=== PATIENT | female | born 2000 | race African-American/Black ===

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

== ENCOUNTER 2020-01-22 17:52 | Inpatient (IN) ==
[2020-01-22] MEDS ORDERED: TYLENOL PO ONE (18:36)
--- NOTE | 2020-01-22 18:39 | PROVIDER DOCUMENTATION ---
This chart was entered by Kendy Lerma Scribe, acting as scribe for Antonio Whitley MD. HPI-General Adult - General Stated Complaint: SOB Time Seen by Provider: 01/22/20 17:57 Source: patient Allergies/Adverse Reactions: Patient Allergies Allergy/AdvReac Type Severity Reaction Status Date / Time cephalexin [From Keflex] Allergy SWELLING Verified 01/22/20 20:26 Home Medications: Home Medication List Medication Instructions Recorded Confirmed Last Taken Type Hydroxychloroquine [Plaquenil] 400 mg PO DAILY 07/29/19 01/22/20 12/21/19 23:30 History Mometasone/Formoterol [Dulera 100 2 puff INH BID 08/02/19 01/22/20 12/20/19 History Mcg/5 Mcg Inhaler] Prednisone 10 mg PO DAILY 08/02/19 01/22/20 12/21/19 23:30 History Multivitamin [Multivitamins] 1 ea PO DAILY 09/20/19 01/22/20 12/22/19 12:00 History Pantoprazole [Protonix] 40 mg PO DAILY #30 tab 01/11/20 01/22/20 Unknown Rx Tramadol [Ultram] 50 mg PO Q6H PRN PRN #12 tab 01/11/20 01/22/20 Unknown Rx - History of Present Illness -Gen Adult Nature of Presenting Problems: Patient is a 19 yof who presents to the ED with a cc of SOB onset yesterday with associated left lower chest tenderness. Patient reports recently being dx with pneumonia. Patient is A&0x3 with no apparent distress. Location of Pain/Injury: reports: chest (Left lower) Pain Radiation: reports: no radiation Quality of Pain: reports: dull Severity: reports: mild Onset/Duration: reports: 24 hours ago Timing: reports: still present Context/Activities at Onset: reports: none Modifying Factors: improves with: nothing Associated Symptoms: reports: chest pain (Left lower chest), shortness of breath . denies: cough, fever/chills Similar Symptoms Previously?: Yes Recently seen or treated by another doctor?: Yes Review of Systems - Adult - REVIEW OF SYSTEMS - ADULT Constitutional: reports: no symptoms reported Eyes: reports: no symptoms reported Ears, Nose, Mouth & Throat: reports: no symptoms reported Cardiovascular: reports: see HPI, chest pain (Left lower chest tenderness) Respiratory: reports: see HPI, wheezing Gastrointestinal: reports: no symptoms reported Genitourinary: reports: no symptoms reported Musculoskeletal: reports: no symptoms reported Integumentary: reports: no symptoms reported Neurological: reports: no symptoms reported Psychiatric: reports: no symptoms reported Endocrine: reports: no symptoms reported Hematologic/Lymphatic: reports: no symptoms reported Allergic/Immunologic: reports: no symptoms reported All Other Systems: Reviewed and Negative Past History - Adult - PAST MEDICAL HISTORY-ADULT Review of Records: reports: Old Records Reviewed, Nursing Assessment Review, Medications Reviewed, Social history reviewed & non-contributory. Major Childhood Illnesses: reports: denies history Cardiovascular: reports: denies history Respiratory: reports: asthma Gastrointestinal: reports: denies history Obstetrical/Gynecological: reports: denies history Genitourinary: reports: denies history Musculoskeletal: reports: denies history Neurological: reports: denies history Endocrine/Immune: reports: denies history Other Conditions: reports: denies history - PRIOR SURGERIES/PROCEDURES Surgical/Procedure History: reports: none, hernia repair - IMMUNIZATION STATUS Childhood Immunizations: See Nurse Assessment Flu Vaccine: See Nurse Assessment - FAMILY HISTORY Family History: reviewed, not pertinent - SOCIAL HISTORY Smoking: non-smoker Substance Use: denies Living Situation: family Physical Exam-General - PHYSICAL EXAM-ADULT Initial Vital Signs Reviewed: Yes - CONSTITUTIONAL General Appearance: alert, no apparent distress - EYES Eyes: PERRL/EOMI, pink conjunctivae - HEAD, EARS, NOSE, MOUTH & THROAT HENMT: normocephalic/atraumatic, moist mucous membranes - NECK Neck: full range of motion, supple, normal inspection - RESPIRATORY Respiratory: chest non-tender, lungs clear, no respiratory distress, no accessory muscle use. negative: normal breath sounds (decreased breath sounds on the left) - CARDIOVASCULAR Cardiovascular: normal peripheral pulses, regular rate, rhythm - GASTROINTESTINAL (ABDOMEN) Abdominal Exam: normal bowel sounds, non tender, soft - MUSCULOSKELETAL Extremity: normal range of motion, non-tender, normal inspection - SKIN Integumentary: normal color, normal turgor, warm/dry - NEUROLOGIC Neurologic: grossly normal - PSYCHIATRIC Psych/Mental Status: normal mood/affect, normal thought content, normal thought process, oriented x 3 Progress - PLAN OF CARE/RESULTS Progress/Plan/Lab Results: Orders Category Date Time Status Saline Loc NOW Care 01/22/20 18:01 Active cxr [CHEST-PORTABLE] [RAD] Stat Exams 01/22/20 18:01 Ordered CBC WITH ELECTRONIC DIFF [HEME] Stat Lab 01/22/20 18:01 Uncollected COMPREHENSIVE METABOLIC PANEL [CHEM] Stat Lab 01/22/20 18:01 Uncollected D-DIMER [COAG] Stat Lab 01/22/20 18:01 Uncollected LACTATE, PLASMA [CHEM] Stat Lab 01/22/20 18:01 Uncollected PROTIME WITH INR [COAG] Stat Lab 01/22/20 18:01 Uncollected PTT [COAG] Stat Lab 01/22/20 18:01 Uncollected EKG [EKG] Stat Ther 01/22/20 18:01 Ordered Result Diagrams: 01/22/20 18:20 01/22/20 18:20 - CT/MRI 1 CT Study: Angiogram Impression: Abnormal, See EMR Report ( COMMENT: 3-D MIPS were performed. There is a large left pleural effusion with near complete atelectasis of the left lung. There is shift the mediastinum to the right. There are no apparent filling defects in the pulmonary arteries. The aorta is not distended and there is no evidence of dissection. Compared to 01/11/2020 the left pleural effusion is larger. There is a greater degree of compressive atelectasis. There are is bilateral axillary adenopathy which has not changed appreciably since the previous study. The regional skeleton is intact. There may be some pulmonary edema in the right lung. IMPRESSION: Massive left pleural effusion with complete atelectasis of the left lung. Bilateral axillary adenopathy. Electronically signed by Chuy Green 01/22/2020 9:48 PM 01/22/202147 Interpreting Physician: Chuy Green MD Dictated Date/Time: 01/22/202142 cc: Megan Arauz MD; Abraham Castañeda MD) Comparison with other Films: changes noted CT Results: Massive left pleural effusion with complete atelectasis of the left lung. - CONSULTS/PCP/HOSPITALIST Notification #1 *Consult/PCP/Hospitalist*: Dr. Machado, [employer] Time Discussed: 22:44 Reason/Comments: Agrees to consult, admit to hospitalist Consult Disposition: Admit #2 Consult: Dr. Hager, Hospitalist Time Discussed: 22:45 Reason/Comments: Accepts admission Consult Disposition: Admit - CHANGE OF SHIFT REPORT (ED Provider) 1 Report Given and Care Transferred to:: Dr Arauz Time of Transfer: 18:39 Items Pending: Labs, XRAY Results Departure - Departure Date of Disposition Decision: 01/22/20 Time of Disposition Decision: 22:49 Disposition: ADMITTED INPATIENT 09 Certified Medical Emergency: Emergent Condition: Stable Referrals and Follow-Ups: Abraham Castañeda MD [Primary Care Provider] - Attestation - Physician/ NOLVIA Attestation Patient care was provided by Advanced Practice Provider:: No The physician spent face to face time with patient:: Yes Advanced Practice Provider documentation review:: Supervising physician onsite and consulted in the evaluation and care of this patient. The physician did have a face to face encounter with the patient. This chart was documented by the indicated scribe, (Kendy Lerma Scribe) and accurately reflects the services I performed and decisions made by Jose R ritchie Donald C., MD, as attested by the provider's signature.
[2020-01-22 18:44] LABS: INR 0.86; PROTIME 11.8 Seconds (11.0-16.0)
[2020-01-22 18:45] LABS: PTT 23.5 Seconds (22.3-41.8)
[2020-01-22 18:56] LABS: BASO# 0.01 X1000 (0.0-0.2); BASO% 0.1 % (0.0-0.8); EOS# 0.03 X1000 (0.0-0.7); EOS% 0.4 % (0.0-10.0); HEMATOCRIT 36.9 % (37.0-47.0); HEMOGLOBIN 11.8 g/dL (12.0-16.0); LYMPH# 1.48 X1000 (1.2-3.4); MCH 25.5 PG (27-31); MCV 79.9 FL (81-99); MONO# 0.59 X1000 (0.11-0.59); MONO% 7.6 % (1.7-9.3); MPV 9.6 FL (7.4-10.4); NEUT% 72.9 % (42.2-75.2); PLT 564 X1000 (130-400); RBC 4.62 XMIL (4.2-5.4); WBC 7.81 X1000 (4.8-10.8)
[2020-01-22 19:02] LABS: AGAP 12; ALBUMIN 3.2 g/dL (3.5-5.0); ALKALINE PHOSPHATASE 64 U/L (32-104); BUN 7 mg/dL (8-22); CALCIUM 8.5 mg/dL (8.8-10.2); CHLORIDE 102 mmol/L (98-107); COSMO 271; CREATININE 0.6 mg/dL (0.5-0.9); ESTIMATED GFR > 60; GLUCOSE 87 mg/dL (70-104); GOT 16 U/L (10-30); GPT 11 U/L (10-36); POTASSIUM 3.5 mmol/L (3.5-5.1); SODIUM 137 mmol/L (136-145); TCO2 23 mmol/L (25-35); TOTAL BILIRUBIN 0.31 mg/dL (0.20-1.00); TOTAL PROTEIN 6.4 g/dL (6.3-8.3)
[2020-01-22] MEDS ORDERED: DUONEB (A & A) INH ONE (19:25)
[2020-01-22] MEDS ORDERED: VANCOMYCIN 1 GM/NS 1 GM/250 ML IVPB IV ONE (19:33)
[2020-01-22] MEDS ORDERED: ZOFRAN IV ONE (20:16)
--- NOTE | 2020-01-22 21:50 | Diag Imaging Result Doc PS360 ---
EXAM: CT ANGIOGRAM PULMONARY ARTERIES 01/22/2020 HISTORY: dyspnea TECHNIQUE: This exam was performed using automated exposure control, adjustment of mA or kV according to patient size, and/or use of iterative reconstruction technique. COMMENT: 3-D MIPS were performed. There is a large left pleural effusion with near complete atelectasis of the left lung. There is shift the mediastinum to the right. There are no apparent filling defects in the pulmonary arteries. The aorta is not distended and there is no evidence of dissection. Compared to 01/11/2020 the left pleural effusion is larger. There is a greater degree of compressive atelectasis. There are is bilateral axillary adenopathy which has not changed appreciably since the previous study. The regional skeleton is intact. There may be some pulmonary edema in the right lung. IMPRESSION: Massive left pleural effusion with complete atelectasis of the left lung. Bilateral axillary adenopathy. Electronically signed by Chuy Green 01/22/2020 9:48 PM
--- NOTE | 2020-01-23 00:17 | HISTORY AND PHYSICAL ---
PRIMARY CARE PHYSICIAN: Abraham Castañeda MD. CHIEF COMPLAINT: Shortness of breath and chest discomfort x2 days. HISTORY OF PRESENTING ILLNESS: This is a 19-year-old female with a history of SLE and obesity who had presented to the emergency department with 2 days history of having worsening shortness of breath and chest discomfort. The patient states that it seemed to be worsening and subsequently she had come to the emergency department. The patient apparently was treated for pneumonia about 2 weeks ago and discharged home. She states that she was doing well after she went home, but over the past several days her symptoms seem to have reoccurred. The patient was seen in the ED, she had imaging done which did show a large left pleural effusion. Due to these findings she will require admission for further management. At the time of my examination the patient denied any headache, nausea, vomiting, diarrhea, hemoptysis or melena, but complained of chest discomfort and shortness of breath. PAST MEDICAL HISTORY: Includes SLE, obesity. PAST SURGICAL HISTORY: Hernia repair. ALLERGIES: Cephalexin. CURRENT MEDICATIONS: Include Plaquenil 400 mg p.o. daily, Dulera 100 mcg/5 mcg inhaler 2 puffs inhalation b.i.d., pantoprazole 40 mg p.o. daily, prednisone 10 mg p.o. daily, tramadol 50 mg p.o. q.6 hours. SOCIAL HISTORY: She denies any history of smoking, alcohol or illicit drug use. FAMILY HISTORY: No history of coronary disease. REVIEW OF SYSTEMS: Fourteen point review of systems is as listed in the HPI, other systems negative. PHYSICAL EXAMINATION: GENERAL: A cooperative friendly female. She is resting more comfortably now. VITAL SIGNS: Temperature 101.3 degrees, pulse 144, respirations 40, blood pressure 116/56. HEENT: Atraumatic, normocephalic. Extraocular movements are intact. PERRLA. NECK: No masses. CHEST: Rales. CARDIOVASCULAR: Regular rate and rhythm. ABDOMEN: Soft, obese, positive bowel sounds. EXTREMITIES: Trace edema. NEUROLOGIC: She is awake, alert asnd oriented x3. : No bladder distention. SKIN: Warm. LABORATORIES AND STUDIES: WBC is 7.81, hemoglobin 11.8, hematocrit 36.9, platelets 564,000. Sodium 137, potassium 3.5, chloride 102, CO2 is 23, BUN is 7, creatinine 0.6, glucose is 87. Pulmonary arteriogram shows massive left pleural effusion. ASSESSMENT: This is a 19-year-old female with a history of SLE and obesity who had presented to the emergency department with 2 days history of worsening shortness of breath. She was evaluated in the ED and she had imaging done which did show a large left pleural effusion. Subsequently she will require admission for further management. 1. Large left pleural effusion. 2. Recent treatment for pneumonia. 3. SLE. 4. Obesity. PLAN: 1. We will admit the patient to ICU. 2. We will keep the patient NPO. 3. We will schedule the patient for a ultrasound-guided thoracentesis. 4. We will consult Pulmonology. 5. We will check blood cultures. Start the patient on IV antibiotics. 6. Restart home medications. 7. We will continue to follow, reassess and make further recommendation based on the patient's clinical course. cc: Umer Hager MD
[2020-01-23] MEDS: ZOFRAN IV PRN (01:02)
[2020-01-23] MEDS ORDERED: SODIUM CHLORIDE 0.9% INJ PRN (02:05)
[2020-01-23] MEDS ORDERED: PHENERGAN IV PRN (02:05)
[2020-01-23] MEDS: ZOSYN 3.375 GM in NS 50 ML IV SCH ×4 (02:29→19:29)
[2020-01-23] MEDS: DUONEB (A & A) INH SCH ×7 (03:35→23:40)
[2020-01-23] MEDS: PRILOSEC PO SCH (06:11)
[2020-01-23] MEDS: TYLENOL PO PRN ×2 (06:11→15:02)
--- NOTE | 2020-01-23 06:49 | EKG Report ---
Test Performed on : 01/23/2020 05:46:25 AM Test Reason : HR 135 Blood Pressure : / mmHG Vent. Rate : 135 BPM Atrial Rate : 135 BPM P-R Int : 136 ms QRS Dur : 068 ms QT Int : 270 ms P-R-T Axes : 051 037 -13 degrees QTc Int : 405 ms Sinus tachycardia. Septal infarct , age undetermined Nonspecific T wave abnormality Abnormal ECG When compared with ECG of 11-JAN-2020 08:54, (Unconfirmed) No significant change was found Confirmed by Robb Mcdonough MD ([id number]) on 01/24/2020 3:28:03 PM
[2020-01-23 07:35] LABS: BASO# 0.03 X1000 (0.0-0.2); BASO% 0.4 % (0.0-0.8); HEMATOCRIT 34.2 % (37.0-47.0); HEMOGLOBIN 10.6 g/dL (12.0-16.0); IMM GRAN# 0.06 X1000 (0.0-0.04); IMM GRAN% 0.8 % (0.0-0.5); LYMPH% 13.1 % (20.5-51.1); MCV 80.7 FL (81-99); MONO# 0.79 X1000 (0.11-0.59); MONO% 10.3 % (1.7-9.3); MPV 9.3 FL (7.4-10.4); NEUT# 5.77 X1000 (1.4-6.5); NEUT% 75.4 % (42.2-75.2); PLT 540 X1000 (130-400); RBC 4.24 XMIL (4.2-5.4); RDW 15.7 % (11.5-14.5); WBC 7.65 X1000 (4.8-10.8)
[2020-01-23 07:49] LABS: AGAP 11; BUN 10 mg/dL (8-22); CALCIUM 8.4 mg/dL (8.8-10.2); CHLORIDE 103 mmol/L (98-107); COSMO 268; ESTIMATED GFR > 60; GLUCOSE 103 mg/dL (70-104); POTASSIUM 3.5 mmol/L (3.5-5.1); SODIUM 134 mmol/L (136-145); TCO2 20 mmol/L (25-35)
[2020-01-23] MEDS: PREDNISONE PO SCH (08:50)
[2020-01-23] MEDS: PLAQUENIL PO SCH (08:50)
[2020-01-23] MEDS: THERA M PLUS PO SCH (08:50)
--- NOTE | 2020-01-23 10:59 | Diag Imaging Result Doc PS360 ---
EXAM: US THORACENTESIS W/IMAGE GUIDE INDICATION: Large left pleural effusion TECHNIQUE: COMPARISON: None. FINDINGS: Risks, benefits, and alternatives were discussed with the patient and informed consent was obtained. The patient was prepped and draped in sterile fashion and local anesthesia was achieved with 1% lidocaine solution. Using ultrasound guidance, a large bore catheter was inserted into the left pleural space and 1500 mL of flaca serous fluid was aspirated. There were no known complications. A postprocedural chest radiograph showed no pneumothorax. IMPRESSION: Technically successful ultrasound-guided left thoracentesis. Electronically signed by Titi Ruiz 01/23/2020 10:56 AM
--- NOTE | 2020-01-23 11:01 | Diag Imaging Result Doc PS360 ---
EXAM: CHEST-2 VIEWS INDICATION: Post Thora TECHNIQUE: 2 views COMPARISON: 01/11/2020 FINDINGS: There is no evidence of pneumothorax status post left thoracentesis. Even after aspirating 1500 mL of fluid during the thoracentesis, there is still a moderate amount of pleural fluid that remains on the left. There is mild interstitial thickening on the left suggesting edema. The right lung is grossly clear. Cardiac silhouette is stable. IMPRESSION: No evidence of pneumothorax status post left thoracentesis. Electronically signed by Titi Ruiz 01/23/2020 10:59 AM
[2020-01-23 12:02] LABS: GLUCOSE BODY FLUID 50 mg/dL; LDH BODY FLUID 305 U/L; TOTAL PROT BODY FLUID 3.8 g/dL
[2020-01-23 12:10] LABS: BODY FLUID SOURCE PLEURAL FLUID; SPECIMEN PLEURAL FLUID; WBC BF 6648 /cumm
[2020-01-23 12:12] LABS: MONOS 12 %; POLYS 88 %
[2020-01-23 12:16] LABS: AMYLASE BODY FLUID 41 U/L
--- NOTE | 2020-01-23 13:10 | PROGRESS NOTE ---
DATE: 01/23/2020 SUBJECTIVE: Ms. Morales is a patient of Dr. Abraham Castañeda. She came in after shortness of breath and chest discomfort for about 2 days. This is a 19-year-old female with a history of systemic lupus erythematosus and obesity, who presented to the emergency room with 2-day history of having worsening shortness of breath and chest discomfort. The patient states she seemed to be worsening and subsequently came into the emergency department, treated for pneumonia for 2 weeks and discharged home. States she was doing well and she went home. Over the past few days, seemed to get more short of breath. In the emergency room, imaging done showed large left pleural effusion, so was admitted. She did get thoracentesis this morning and she is breathing better at this present time. OBJECTIVE: Vital Signs: Temperature 98.3 degrees, pulse 120, respirations 28, blood pressure 126/88. HEENT: Pupils are equal and round. Lungs: Clear in all lung olsen. Cardiovascular: Regular rhythm and rate without murmur or S3. Abdomen: Soft. Skin: Warm and dry. Urine output is 600 mL. LABORATORY DATA: Review of labs from yesterday, white count 7650, hematocrit is 34, platelet count 540,000. Sodium 134, potassium 3.5, chloride 103, BUN 10, creatinine 1.0. Thoracentesis done this morning technically successful ultrasound guided left thoracentesis. They took off 1500 mL of flaca serous fluid which was aspirated. ASSESSMENT AND PLAN: 1. Large left pleural effusion. 2. Recently treated for pneumonia. 3. Systemic lupus erythematosus. Suspect pleural pathology related to her lupus. 4. Obesity. 5. Status post ultrasound-guided thoracentesis. She did have pulmonary arteriogram, pulmonary CT, massive left pleural effusion, complete atelectasis of the left lung, bilateral axillary adenopathy. cc: Edwin Cuevas MD
--- NOTE | 2020-01-23 22:27 | PULMONOLOGY CONSULTATION ---
DATE: 01/23/2020 REQUESTING CLINICIAN: Dr. Cuevas. REASON FOR CONSULTATION: Pleural effusion. HISTORY OF PRESENT ILLNESS: Ms Morales is a 19-year-old black female who was diagnosed with lupus when she was 18 years old. The patient was treated at [facility]. She reports she received infusion therapy every 2 months. She is not sure which medication she was taking. When she turned 19, she began seeing Dr. Valdez. She currently is on 10 mg of prednisone, mycophenolate, and Plaquenil. She reports she recently decreased her prednisone dosing. Her initial presentation with lupus included facial swelling along with joint pain. She presented to the emergency room on 01/11/2020 with left-sided chest pain and shoulder pain. She underwent CT pulmonary angiogram which revealed a small amount of pericardial fluid with moderate left-sided pleural effusion and compressive atelectasis of the left lower lobe. She was diagnosed with atypical chest pain, atelectasis, esophagitis. She was discharged on tramadol and Protonix. She returned to the emergency room yesterday afternoon with increasing shortness of breath. She denied fevers or chills. White count was within normal limits. She underwent a 1500 mL thoracentesis today with removal of flaca serous fluid. She reports her symptoms have improved. PAST MEDICAL HISTORY: 1. Lupus, as per above. 2. Morbid obesity. 3. Status post hernia repair. 4. Asthma. SOCIAL HISTORY: She is a nonsmoker. No alcohol. FAMILY HISTORY: Noncontributory to current presentation. REVIEW OF SYSTEMS: Notable for chest pain, shortness of breath and occasional fevers. PHYSICAL EXAMINATION: General: Reveals an obese white female resting comfortably in no distress. Vital signs: Maximum temperature in the last 24 hours is 101.3 degrees, blood pressure 128/74, heart rate 118, respiratory rate 16, oxygen saturation 95%. HEENT: Pupils are equal and reactive. Oropharynx appears clear. Neck: Supple. Chest: Reveals diminished breath sounds left base. Abdomen: Obese and soft. Extremities: Without edema. LABORATORIES: White blood count 7.81, hemoglobin 11.8, platelet count 564,000. Pleural fluid reveals a glucose of 50, total protein of 3.8, LDH of 105, amylase 41, white blood count 6648 with a pH of 7.0. Cultures are pending. IMPRESSION: A 19-year-old with 1. Pleural effusion (exudative on laboratories with an elevated white blood count worrisome for early empyema). 2. Small pericardial effusion. 3. Dyspnea at rest. 4. Morbid obesity. RECOMMENDATIONS: 1. Continue current antibiotic regimen. 2. Await pleural culture results. 3. Consider augmenting steroids. 4. We will ask Dr. Valdez to review her case. cc: Madan Machado MD
[2020-01-24] MEDS: TYLENOL PO PRN ×2 (00:20→10:30)
[2020-01-24] MEDS: ZOSYN 3.375 GM in NS 50 ML IV SCH ×4 (01:15→19:59)
[2020-01-24] MEDS: DUONEB (A & A) INH SCH ×5 (03:15→20:13)
[2020-01-24] MEDS: PRILOSEC PO SCH (06:02)
[2020-01-24] MEDS: PREDNISONE PO SCH (09:02)
[2020-01-24] MEDS: THERA M PLUS PO SCH (09:02)
[2020-01-24] MEDS: PLAQUENIL PO SCH (09:02)
[2020-01-24] MEDS: SOLU-MEDROL IV SCH ×2 (10:30→18:16)
[2020-01-24] MEDS ORDERED: CHLORASEPTIC SPRAY MT PRN (10:34)
[2020-01-24] MEDS: ULTRAM PO PRN (11:01)
[2020-01-24] MEDS ORDERED: MOTRIN PO PRN ×2 (11:45→12:02)
--- NOTE | 2020-01-24 12:31 | PROGRESS NOTE ---
DATE: 01/24/2020 SUBJECTIVE: Ms. Morales does feel better. She reports some throat irritation and some pleuritic pain in her back. We are going to try a little bit of Motrin. She is already getting Solu- Medrol, I believe. She remains afebrile. OBJECTIVE: Temperature 98.0 degrees, pulse 110, respirations 24, blood pressure 119/81. Pupils are equal and round. Lungs are clear in all lung olsen. Cardiovascular Examination: Regular rhythm and rate without murmur or S3. Urine output is 1200 mL. ASSESSMENT AND PLAN: 1. Pleural effusion, exudative on laboratories, and elevated white blood cell count worrisome for early empyema. Continue present antibiotics and steroids. 2. Small pericardial effusion. 3. Dyspnea at rest. 4. Morbid obesity. 5. Underlying systemic lupus erythematosus. PRESENT ORDERS: She is getting hydroxychloroquine for lupus 400 mg p.o. daily, Motrin 400 mg p.o. q.6 hours, methylprednisone 40 mg IV q.8, multivitamin 1 a day, Prilosec 20 mg daily, Chloraseptic spray that she can use as needed. I am going to put her on tramadol 50 mg p.o. q.6 hours p.r.n. She is on Zosyn 3.375 g IV q.6 hours. We will see if we can sit her up in a chair. LABORATORY DATA: Reviewed from yesterday, hematocrit stable at 34. Electrolytes unremarkable. Creatinine is 1.0. Note that C-reactive protein was 67, so elevated. Her serum test was negative. Lactate levels have been low. cc: Edwin Cuevas MD
[2020-01-24] MEDS ORDERED: MAALOX PLUS LIQUID PO PRN (15:10)
[2020-01-24] MEDS: ZOFRAN IV PRN (16:22)
[2020-01-24] MEDS ORDERED: TUMS PO PRN (18:39)
[2020-01-24] MEDS ORDERED: G.I. COCKTAIL PO PRN (18:40)
--- NOTE | 2020-01-24 19:08 | PULMONOLOGY PROGRESS NOTE ---
DATE: 01/24/2020 SUBJECTIVE: The patient reports some persistent pain on inspiration. OBJECTIVE: Vital signs: Blood pressure 129/84, heart rate 108, respiratory rate 15. Maximum temperature in the last 24 hours is 99.4 degrees. HEENT: Pupils are equal and reactive. Oropharynx appears clear. Neck: Supple. Chest: Diminished breath sounds in left base. Cardiac: S1, S2. Abdomen: Soft. Extremities: Without edema. LABORATORY DATA: C-reactive protein is 67.66. Complement C3 is low at 69. MICROBIOLOGY DATA: Negative. IMPRESSION: A 19-year-old with lupus, who presents with: 1. Pleural effusion. 2. Pleurisy. 3. Pericardial effusion. 4. Dyspnea. 5. Morbid obesity. 6. Fevers. DISCUSSION: 19-year-old with problems outlined above. C-reactive protein is elevated. C3 level is low. Cultures are negative to date. RECOMMENDATION: 1. Initiate steroids. 2. Nonsteroidals for pleurisy pain. 3. Continue current antibiotic regimen. 4. Await rheumatology consultation. cc: Madan Machado MD
[2020-01-24] MEDS: NEXIUM PO SCH (20:00)
[2020-01-25] MEDS: DUONEB (A & A) INH SCH ×6 (00:02→22:35)
[2020-01-25] MEDS: SOLU-MEDROL IV SCH ×4 (01:06→18:33)
[2020-01-25] MEDS: ZOSYN 3.375 GM in NS 50 ML IV SCH ×4 (01:06→22:51)
[2020-01-25] MEDS: PLAQUENIL PO SCH (09:26)
[2020-01-25] MEDS: THERA M PLUS PO SCH (09:27)
[2020-01-25] MEDS: NEXIUM PO SCH ×2 (09:27→22:52)
--- NOTE | 2020-01-25 13:53 | PROGRESS NOTE ---
DATE: 01/25/2020 SUBJECTIVE: Ms. Morales is breathing better, feeling better, throat feels better as well. OBJECTIVE: Vital Signs: She remains afebrile, temperature 97.5 degrees, pulse 103, respirations 40, blood pressure 126/85. HEENT: Pupils are equal and round. Lungs: Clear in all lung olsen. Cardiovascular: Regular rhythm and rate without murmur or S3. Abdomen: Soft. Skin: Warm and dry. Urine output 400 mL. ASSESSMENT AND PLAN: 1. Pleural effusion, pleurisy, pericardial effusion. I suspect this is related to her lupus. Her C-reactive protein was elevated. C3 level was low. Cultures are negative thus far. Continue antibiotics. Also treating her for potential pneumonia. 2. Systemic lupus erythematosus. 3. Morbid obesity. REVIEW OF ORDERS: She is on steroids, and continue present antibiotics. I think she can move to a regular floor. She is on calcium carbonate 500 mg every 4 hours, Nexium 40 mg p.o. b.i.d., hydroxychloroquine 400 mg p.o. daily, and methylprednisone 40 mg every 8 hours. REVIEW OF LAB: Hematocrit is 34, hemoglobin is 10, platelet count 540,000, white blood cell count 7650. Electrolytes unremarkable. cc: Edwin Cuevas MD
[2020-01-25] MEDS ORDERED: SOLU-MEDROL IV ONE (20:56)
--- NOTE | 2020-01-25 22:43 | PULMONOLOGY PROGRESS NOTE ---
DATE: 01/25/2020 SUBJECTIVE: The patient is awake, alert and conversant. She reports her chest pain has essentially resolved. She feels significantly better. OBJECTIVE: Vital Signs: The patient has been afebrile for the last 24 hours. Blood pressure 131/90, heart rate 116, respiratory rate 20, oxygen saturation 98% on 2 L per nasal cannula. HEENT: Pupils are equal and reactive. Oropharynx is clear. Neck: Supple. Chest: Reveals decreased breath sounds left base. Cardiac: S1, S2. Abdomen: Soft. Extremities: Without edema. LABORATORIES: CH-50 is low, C3 is low, and C4 is low normal. IMPRESSION: A 19-year-old with 1. Pleural effusion. 2. Pleurisy. 3. Pericardial effusion. 4. Dyspnea. 5. Morbid obesity. DISCUSSION: A 19-year-old with problems outlined above. All cultures are negative. Complement is low. Lupus exacerbation is suspected. PLAN: 1. Continue current steroid regimen. 2. Nonsteroidal's p.r.n. for pain. 3. Follow up chest x-ray and CRP levels tomorrow. cc: Madan Machado MD
[2020-01-25] MEDS ORDERED: ZOSYN ONE (22:52)
[2020-01-25] MEDS: ALLEGRA PO SCH (22:52)
[2020-01-26] MEDS: ULTRAM PO PRN (00:04)
[2020-01-26] MEDS: ZOFRAN IV PRN (00:05)
[2020-01-26] MEDS: DUONEB (A & A) INH SCH ×6 (03:35→23:26)
[2020-01-26] MEDS: ZOSYN 3.375 GM in NS 50 ML IV SCH ×3 (07:07→18:20)
--- NOTE | 2020-01-26 07:52 | Diag Imaging Result Doc PS360 ---
EXAM: CHEST-2 VIEWS HISTORY: abnormal exam TECHNIQUE: Two views COMPARISON: 01/23/2020 FINDINGS: There are infiltrates in the left lower lobe with a small left pleural effusion. The right lung is well expanded and clear. No right-sided effusion. IMPRESSION: Mild interval improvement Electronically signed by Jagdish Veliz 01/26/2020 7:50 AM
[2020-01-26] MEDS: SOLU-MEDROL IV SCH (09:22)
[2020-01-26] MEDS: ALLEGRA PO SCH (09:22)
[2020-01-26] MEDS: THERA M PLUS PO SCH (09:22)
[2020-01-26] MEDS: PREDNISONE PO SCH ×2 (09:23→22:58)
[2020-01-26] MEDS: PLAQUENIL PO SCH (09:23)
[2020-01-26] MEDS: NEXIUM PO SCH ×2 (09:23→22:58)
--- NOTE | 2020-01-26 15:27 | PULMONOLOGY PROGRESS NOTE ---
DATE: 01/26/2020 SUBJECTIVE: The patient is awake and alert. She denies any chest pain. In fact, she denies any complaints today. OBJECTIVE: Vital Signs: Blood pressure is 116/64, heart rate of 91, respirations 18, temperature is 98.1 degrees oral with O2 saturations 96% to 99% on 2 L nasal cannula. Eyes: Pupils are equal, round, react to light. EOMs are intact. Sclerae are nonicteric. HEENT: Head is normocephalic, atraumatic. Mucous membranes are moist. Neck: Supple with trachea midline. Cardiovascular: Regular rate and rhythm. S1 and S2 are appreciated. She has no lower extremity edema. She reports calves are nontender with peripheral pulses palpable x4 extremities. Pulmonary: Breath sounds are diminished at the left base. Chest rises and falls symmetric with respiration. Chest wall is nontender to palpation. Gastrointestinal: Abdomen is soft, nontender, nondistended. Bowel sounds in all four quadrants. LABS: CRP is 9.3. Cytology is negative for malignancy. IMPRESSION: This is a 19-year-old female with 1. Pleural effusion. 2. Pleurisy. 3. Pericardial effusion. 4. Dyspnea. 5. Morbid obesity. 6. Lupus exacerbation is suspected. PLAN: 1. We will continue her current steroid regimen. 2. Nonsteroidals p.r.n. for pain. 3. Follow up. Dictated by CRISTEL Trimble for Madan Machado MD cc: CRISTEL Trimble MD
[2020-01-26] MEDS ORDERED: CELLCEPT PO SCH (21:00)
[2020-01-26] MEDS: CELLCEPT PO SCH (22:58)
[2020-01-27] MEDS: ZOSYN 3.375 GM in NS 50 ML IV SCH ×2 (00:37→06:38)
[2020-01-27] MEDS: DUONEB (A & A) INH SCH (03:33)
[2020-01-27 07:57] VITALS: BP 137/87
--- NOTE | 2020-01-27 09:08 | DISCHARGE SUMMARY ---
ADMISSION DATE: 01/23/2020 DISCHARGE DATE: 01/27/2020 HISTORY OF PRESENT ILLNESS: This is a 19-year-old with a history of systemic lupus erythematosus and obesity, who presented to the emergency room with shortness of breath and chest discomfort for a couple of days. She had a 2-day history of having worsening shortness of breath and discomfort and seemed to be worsening. She was treated for pneumonia about 2 weeks ago and discharged home. However, we suspect that she had pleuritic irritation related to her systemic lupus erythematosus. 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 She did have some swelling in her face. PAST MEDICAL HISTORY: Basically systemic lupus erythematosus, obesity, and hernia repair. ALLERGIES: Cephalexin. ADMISSION DIAGNOSIS: We found a large left pleural effusion, and she was admitted to intensive care unit. HOSPITAL COURSE: Her pulmonary arteriogram on 01/21 showed a massive left pleural effusion, complete atelectasis of the left lung, bilateral axillary adenopathy. Her chest x-ray showed no evidence of pneumothorax, status post left thoracentesis. They did an ultrasound thoracentesis. They drained off 1500 mL of flaca serous fluid. Her breathing was better. She had felt better, less pleuritic pain. Pulmonary was following for large pleural effusion; it turned out to be exudative on laboratories with elevated white blood cell count, worrisome for early empyema. She had small pericardial effusion appreciated. She was put on Solu-Medrol and continued on antibiotics. Did not see evidence of definitive bacterial pneumonia, but continued to treat with antibiotics. Dr. Valdez wanted her back on her CellCept, and we suspect this is a lupus exacerbation. She felt ready to go home on 01/27/2020, and planned to discharge her home on: Nexium 40 mg b.i.d., Genoveva 180 mg daily, Plaquenil 40 mg daily, Motrin 400 mg q. 6 hours p.r.n. pleuritic discomfort, CellCept 1500 mg p.o. b.i.d., and prednisone 30 mg b.i.d. She has tramadol for pain, which I will give her 50 mg q. 6 hours p.r.n. Her cultures with no growth from blood culture, Gram stain of pleural fluid and culture with no growth. So, we will not put her on any antibiotic. cc: Edwin Cuevas MD
[2020-01-27] MEDS: CELLCEPT PO SCH (09:34)
[2020-01-27] MEDS: THERA M PLUS PO SCH (09:34)
[2020-01-27] MEDS: NEXIUM PO SCH (09:34)
[2020-01-27] MEDS: PREDNISONE PO SCH (09:35)
[2020-01-27] MEDS: PLAQUENIL PO SCH (09:35)
[2020-01-27] MEDS: ALLEGRA PO SCH (09:35)
--- NOTE | 2020-01-27 18:43 | PULMONOLOGY PROGRESS NOTE ---
DATE: 01/27/2020 SUBJECTIVE: The patient is awake and alert. She is walking around in her room. She denies any complaints. OBJECTIVE: Vital signs: Blood pressure is 137/87 with a heart rate of 71, respirations are 20, temperature is 98 degrees with room air saturations 99% to 100%. Eyes: Pupils equal, round, react to light. EOMs are intact. Sclerae are anicteric. HEENT: Head is normocephalic, atraumatic. Mucous membranes are moist. Neck is supple with trachea midline. Cardiovascular: Regular rate and rhythm. S1 and S2 appreciated. She has no lower extremity edema. She reports calves are nontender bilaterally, with peripheral pulses palpable x4 extremities. Pulmonary: Breath sounds are diminished at the left base. Chest rises and falls symmetric with respiration. Gastrointestinal: Abdomen is soft, nontender, nondistended. Bowel sounds in all 4 quadrants. Neurologic: She is alert and oriented x3. IMPRESSION: This is a 19-year-old female with: 1. Pleural effusion. 2. Pleurisy. 3. Pericardial effusion. 4. Dyspnea. 5. Morbid obesity. 6. Lupus exacerbation is suspected. PLAN: 1. We agree to continue her steroid regimen. 2. Nonsteroidal anti-inflammatories for pain p.r.n. Dictated by CRISTEL Trimble for Madan Machado MD cc: CRISTEL Trimble MD
--- NOTE | 2020-01-29 11:19 | PROGRESS NOTE ---
DATE: 01/26/2020 SUBJECTIVE: Ms Morales feels a lot better. She said her throat is opened up and she is eating and she feels like she will be ready go home tomorrow. OBJECTIVE: She remains afebrile, temperature 97.7 degrees, pulse 83, respirations 16, blood pressure 141/98. Pupils are equal and round. No distended neck veins. Lungs are clear in all lung olsen. Cardiovascular regular rate without murmur or S3. Abdomen is soft skin is warm and dry chest x-ray: Mild interval improvement. There are infiltrates in the left lower lobe and small left pleural effusion. The right lung was expanded and clear. No right-sided effusion. ASSESSMENT AND PLAN: Pleural effusion, pleurisy, pericardial effusion, underlying systemic lupus erythematosus. Her CH 50 was low, C3 was low and C4 was low normal. So, DR. Titi Bender is going to put her on prednisone and put her on her CellCept again. Apparently, she was on that before but it was not included in her home medications. She clinically is feeling better. She is on Zosyn at the present time. Cultures, gram stain, pleural fluid with 3+ white blood cells. Blood cultures from the x 2 with no growth and pleural fluid cultures with no growth. Plan is to let her go home tomorrow. cc: Edwin Cuevas MD
== END 2020-01-27 11:21 | disposition home or self-care (01) | DRG 547 ==
LOC: SUPCPDRO → ED 17:52 → SUATTDRO 23:24 → ICU 23:24 → 4N 01-25 16:16
PROVIDERS: ATTEND Emergency Medicine